=== PATIENT | male | born 1965 | race Caucasian/White ===

== ENCOUNTER 2016-09-22 14:12 | Inpatient (IN) | payer OTHER ==
[2016-09-22 15:09] VITALS: BMI 29.2
[2016-09-22] MEDS ORDERED: LOPERAMIDE HCL 2 MG CAPSULE PO PRN (17:06)
[2016-09-22] MEDS ORDERED: ACETAMINOPHEN 325 MG TABLET (FP) PO PRN (17:06)
[2016-09-22] MEDS ORDERED: guaiFENesin/D-METHORPHAN HB 10 ML UNIT-DOSE CUPS PO PRN (17:06)
[2016-09-22] MEDS ORDERED: IBUPROFEN 400 MG TABLET (FP) PO PRN (17:06)
[2016-09-22] MEDS ORDERED: MAGNESIUM CITRATE 300 ML BOTTLE PO PRN (17:06)
[2016-09-22] MEDS ORDERED: MAG HYDROX/AL HYDROX/SIMETH 30 ML UNIT-DOSE CUP PO PRN (17:06)
[2016-09-22] MEDS ORDERED: NICOTINE POLACRILEX 2 MG GUM BC PRN (17:06)
[2016-09-22] MEDS ORDERED: MAGNESIUM HYDROX 2400MG/30ML ORAL SUSPENSION 30 ML CUP PO PRN (17:06)
[2016-09-22] MEDS ORDERED: MENTHOL/PHENOL 1 EACH UD MM PRN (17:06)
[2016-09-22] MEDS ORDERED: P-EPHED 60MG/TRIPROLIDI 2.5MG TABLET PO PRN (17:06)
[2016-09-22] MEDS ORDERED: chlordiazePOXIDE HCL 25 MG CAPSULE PO PRN (17:06)
--- NOTE | 2016-09-22 17:19 | HP ---
CIWA Score - CIWA Score Nausea/Vomitin Muscle Tremors: 4-Moderate,w/Arms Extend Anxiety: 4-Mod. Anxious/Guarded Agitation: 4-Moderately Restless Paroxysmal Sweats: 3 Orientation: 0-Oriented Tacttile Disturbances: 1-Very Mild Itch/Numbness Auditory Disturbances: 0-None Visual Disturbances: 0-None Headache: 0-None Present CIWA-Ar Total Score: 19 Admission ROS BHS - HPI Chief Complaint: Withdrawal sx. Allergies/Adverse Reactions: Allergies Allergy/AdvReac Type Severity Reaction Status Date / Time No Known Allergies Allergy Verified 09/22/16 16:21 History of Present Illness: 50 y/o man with a long hx. of alcoholism is admitted for detox. Pt. has been in previous detox,reports one yr. sobriety. Exam Limitations: No Limitations - Ebola screening Have you traveled outside of the country in the last 21 days: No Have you had contact with anyone from an Ebola affected area: No Have you been sick,other than usual withdrawal symptoms: No Do you have a fever: No - Review of Systems Constitutional: Diaphoresis EENT: reports: No Symptoms Reported Respiratory: reports: No Symptoms reported Cardiac: reports: No Symptoms Reported GI: reports: Nausea, Abdominal cramping : reports: No Symptoms Reported Musculoskeletal: reports: No Symptoms Reported Integumentary: reports: Sweating Neuro: reports: Tingling, Tremors Endocrine: reports: No Symptoms Reported Hematology: reports: No Symptoms Reported Psychiatric: reports: No Sypmtoms Reported Other Systems: Reviewed and Negative Patient History - Patient Medical History Hx Anemia: No Hx Asthma: No Hx Chronic Obstructive Pulmonary Disease (COPD): No Hx Cancer: No Hx Cardiac Disorders: No Hx Congestive Heart Failure: No Hx Hypertension: No Hx Hypercholesterolemia: No Hx Pacemaker: No HX Cerebrovascular Accident: No Hx Seizures: No Hx Dementia: No Hx Diabetes: No Hx Gastrointestinal Disorders: No Hx Liver Disease: No Hx Genitourinary Disorders: No Hx Sexually Transmitted Disorders: No Hx Renal Disease (ESRD): No Hx Thyroid Disease: No Hx Hepatitis C: No Hx Depression: Yes (10 yrs. ago) Hx Suicide Attempt: No Hx Bipolar Disorder: No Hx Schizophrenia: No - Patient Surgical History Past Surgical History: Yes Hx Neurologic Surgery: Yes (L carpal tunnel sx) Hx Appendectomy: Yes (1989) Hx Orthopedic Surgery: No Other Surgical History: Tonsillectomy - PPD History Previous Implant?: Yes Documented Results: Negative w/proof Implanted On Prior [facility] Admission?: Yes Date: 04/02/16 Results: 0 mm PPD to be Administered?: No - Smoking Cessation Smoking history: Current every day smoker Have you smoked in the past 12 months: Yes Aproximately how many cigarettes per day: 7 Cigars Per Day: 0 Hx Chewing Tobacco Use: No Initiated information on smoking cessation: Yes 'Breaking Loose' booklet given: 09/22/16 - Substance & Tx. History Hx Alcohol Use: Yes Hx Substance Use: Yes Substance Use Type: Alcohol, Cocaine, Marijuana Hx Substance Use Treatment: Yes (detox & rehab) - Substances Abused Alcohol Route: Oral Frequency: Daily Amount used: Rum 1 1/2 PINT/ Beer 2(6 PK) Age of first use: 13 Date of Last Use: 09/22/16 Crack Route: Smoking Frequency: Daily Amount used: $200 Age of first use: 16 Date of Last Use: 09/22/16 Marijuana/Hashish Route: Smoking Frequency: Daily Amount used: $20 Age of first use: 13 Date of Last Use: 09/22/16 Family Disease History - Family Disease History Family Disease History: Other: Father (Alcoholic) Admission Physical Exam BHS - Vital Signs Vital Signs: Vital Signs - 24 hr 09/22/16 15:06 Temperature 98 F Pulse Rate 71 Respiratory 20 Rate Blood Pressure 128/78 - Physical General Appearance: Yes: Tremorous, Irritable, Sweating, Anxious HEENTM: Yes: Within Normal Limits Respiratory: Yes: Chest Non-Tender, Lungs Clear, Normal Breath Sounds Neck: Yes: Supple Breast: Yes: Breast Exam Deferred Cardiology: Yes: Regular Rhythm, Regular Rate, S1, S2 Abdominal: Yes: Normal Bowel Sounds, Non Tender, Soft Genitourinary: Yes: Within Normal Limits Back: Yes: Within Normal Limits Musculoskeletal: Yes: Within Normal Limits Extremities: Yes: Tremors Neurological: Yes: Fully Oriented, Alert Integumentary: Yes: Diaphoresis Lymphatic: Yes: Within Normal Limits - Diagnostic (1) Alcohol dependence with uncomplicated withdrawal Current Visit: Yes Status: Chronic (2) Nicotine dependence Current Visit: Yes Status: Chronic Qualifiers: Nicotine product type: cigarettes Substance use status: uncomplicated Qualified Code(s): F17.210 - Nicotine dependence, cigarettes, uncomplicated (3) Cocaine dependence, uncomplicated Current Visit: Yes Status: Acute (4) Cannabis dependence, uncomplicated Current Visit: Yes Status: Acute Cleared for Admission [facility] - Detox or Rehab [facility] Level of Care: Medically Managed Detox Regimen/Protocol: Librium [facility] Breath Alcohol Content Breath Alcohol Content: 0 Urine Drug Screen - Results Drug Screen Negative: No Urine Drug Screen Results: THC-Marijuana, GERMAN-Cocaine, BZO-Benzodiazepines
[2016-09-22] MEDS ORDERED: chlordiazePOXIDE HCL 25 MG CAPSULE PO ONE (18:15)
[2016-09-22] MEDS: NICOTINE 14 MG/24 HOURS TOPICAL PATCH TD SCH (18:30)
[2016-09-22] MEDS: chlordiazePOXIDE HCL 25 MG CAPSULE PO SCH (22:28)
[2016-09-22] MEDS: diphenhydrAMINE HCL 50 MG CAPSULE PO PRN (22:28)
[2016-09-22] MEDS: THIAMINE HCL 100 MG TABLET (FP) PO SCH (22:28)
[2016-09-22 23:58] LABS: URINE APPEARANCE CLEAR; URINE BILIRUBIN NEGATIVE (NEGATIVE); URINE BLOOD NEGATIVE (NEGATIVE); URINE COLOR YELLOW; URINE GLUCOSE (UA) NEGATIVE (NEGATIVE); URINE KETONE NEGATIVE (NEGATIVE); URINE LEUK ESTERASE NEGATIVE (NEGATIVE); URINE NITRITE NEGATIVE (NEGATIVE); URINE PROTEIN NEGATIVE (NEGATIVE); URINE UROBILINOGEN NEGATIVE E.U./dl (0.2-1.0)
[2016-09-23] MEDS: hydrOXYzine PAMOATE 50 MG CAPSULE (FP) PO PRN (03:16)
[2016-09-23] MEDS: chlordiazePOXIDE HCL 25 MG CAPSULE PO SCH ×4 (05:46→22:33)
--- NOTE | 2016-09-23 10:16 | CONSULT ---
[facility] Psychiatric Consult - Data Date of interview: 09/23/16 Admission source: [facility] Identifying data: This is 50 years old male with no psychiatric hospitalization historty intoxicatyed with: Cannabis, Cocaine, Alcohol and Nicotine Substance Abuse History: - Smoking Cessation. Smoking history: Current every day smoker. Have you smoked in the past 12 months: Yes. Aproximately how many cigarettes per day: 7. Cigars Per Day: 0. Hx Chewing Tobacco Use: No. Initiated information on smoking cessation: Yes. 'Breaking Loose' booklet given : 09/22/16. - Substance & Tx. History. Hx Alcohol Use: Yes. Hx Substance Use : Yes. Substance Use Type: Alcohol, Cocaine, Marijuana. Hx Substance Use Treatment: Yes (detox & rehab). - Substances Abused. Alcohol. Route: Oral. Frequency: Daily. Amount used: Rum 1 1/2 PINT/ Beer 2(6 PK). Age of first use: 13. Date of Last Use: 09/22/16. Crack. Route: Smoking. Frequency: Daily. Amount used: $200. Age of first use: 16. Date of Last Use: 09/22/16. Marijuana/Hashish. Route: Smoking. Frequency: Daily. Amount used: $20. Age of first use: 13. Date of Last Use: 09/22/16 Medical History: Denies Psychiatric History: Patient reports history of depression, nop medications taking at this time Physical/Sexual Abuse/Trauma History: Denies Additional Comment: Observation. Detox Unit Care Protocol Mental Status Exam - Mental Status Exam Alert and Oriented to: Person Cognitive Function: Fair Patient Appearance: Unkempt Mood: Sad Affect: Flat Patient Behavior: Sedated Speech Pattern: Delayed Voice Loudness: Mildly Soft/Quiet Thought Process: Circumstantial Thought Disorder: Being Controlled Hallucinations: Denies Suicidal Ideation: Denies Homicidal Ideation: Denies Insight/Judgement: Fair Sleep: Difficulty falling asleep Appetite: Fair Muscle strength/Tone: Mild Hypotonicity Gait/Station: Shuffling Additional Comments: Observation. Detox Unit Care Protocol Psychiatric Findings - Problem List ([place] 1, 2,3) (1) Cannabis dependence, uncomplicated Current Visit: Yes Status: Acute (2) Cocaine dependence, uncomplicated Current Visit: Yes Status: Acute (3) Alcohol dependence with uncomplicated withdrawal Current Visit: Yes Status: Chronic (4) Nicotine dependence Current Visit: Yes Status: Chronic Qualifiers: Nicotine product type: cigarettes Substance use status: uncomplicated Qualified Code(s): F17.210 - Nicotine dependence, cigarettes, uncomplicated (5) Alcohol induced sleep disorders Current Visit: No Status: Acute (6) Cannabis use disorder, mild, abuse Current Visit: No Status: Acute (7) Crack cocaine use Current Visit: No Status: Chronic (8) Drug-induced mood disorder Current Visit: Yes Status: Suspected - Initial Treatment Plan Initial Treatment Plan: Observation. Detox Unit Care Protocol
[2016-09-23 10:17] LABS: MCH 30.9 pg (25.7-33.7); MCHC 34.1 g/dl (32.0-35.9); MEAN CELL VOLUME 90.7 fl (80-96); MEAN PLT VOLUME 8.2 fl (7.5-11.1); PLATELET COUNT 222 K/MM3 (134-434); RDW 14.2 % (11.9-15.9); WHITE BLOOD COUNT 6.7 K/mm3 (4.0-10.0)
[2016-09-23 10:41] LABS: ALBUMIN 3.4 g/dl (3.4-5.0); ALK PHOS 92 U/L (45-117); ANION GAP 8 (8-16); BILIRUBIN,TOTAL 0.5 mg/dL (0.2-1.0); CO2 26 mmol/L (21-32); COCKROFT - GAULT 122.47; GLUCOSE,RANDOM 92 mg/dL (74-106); SGOT/AST 19 U/L (15-37); SGPT/ALT 27 U/L (12-78); TOT PROT 6.2 g/dl (6.4-8.2)
[2016-09-23] MEDS: NICOTINE 14 MG/24 HOURS TOPICAL PATCH TD SCH (10:44)
[2016-09-23] MEDS: PRENATAL VITAMINS W/ FOLIC ACID TABLET (FP) PO SCH (10:44)
--- NOTE | 2016-09-23 11:08 | PN ---
[facility] CIWA - CIWA Score Nausea/Vomitin-No Nausea/No Vomiting Muscle Tremors: 4-Moderate,w/Arms Extend Anxiety: 4-Mod. Anxious/Guarded Agitation: 4-Moderately Restless Paroxysmal Sweats: 1-Minimal Palms Moist Orientation: 0-Oriented Tacttile Disturbances: 3-Moderate Itch/Numb/Burn Auditory Disturbances: 0-None Visual Disturbances: 0-None Headache: 0-None Present CIWA-Ar Total Score: 16 BHS Progress Note (SOAP) Subjective: ANXIETY,TREMORS,INTERMITTENT SLEEP. Objective: 09/23/16 11:07 Vital Signs Temperature 96.7 F L 09/23/16 09:34 Pulse Rate 62 09/23/16 09:34 Respiratory Rate 18 09/23/16 09:34 Blood Pressure 112/76 09/23/16 09:34 O2 Sat by Pulse Oximetry (%) Laboratory Last Values WBC 6.7 K/mm3 (4.0-10.0) 09/23/16 07:00 RBC 4.92 M/mm3 (4.00-5.60) 09/23/16 07:00 Hgb 15.2 GM/dL (11.7-16.9) 09/23/16 07:00 Hct 44.6 % (35.4-49) 09/23/16 07:00 MCV 90.7 fl (80-96) 09/23/16 07:00 MCHC 34.1 g/dl (32.0-35.9) 09/23/16 07:00 RDW 14.2 % (11.9-15.9) 09/23/16 07:00 Plt Count 222 K/MM3 (134-434) 09/23/16 07:00 MPV 8.2 fl (7.5-11.1) 09/23/16 07:00 Sodium 140 mmol/L (136-145) 09/23/16 07:00 Potassium 4.2 mmol/L (3.5-5.1) 09/23/16 07:00 Chloride 106 mmol/L (98-107) 09/23/16 07:00 Carbon Dioxide 26 mmol/L (21-32) 09/23/16 07:00 Anion Gap 8 (8-16) 09/23/16 07:00 BUN 21 mg/dL (7-18) H D 09/23/16 07:00 Creatinine 1.0 mg/dL (0.7-1.3) 09/23/16 07:00 Creat Clearance w eGFR > 60 (>60) 09/23/16 07:00 Random Glucose 92 mg/dL (74-106) 09/23/16 07:00 Calcium 9.0 mg/dL (8.5-10.1) 09/23/16 07:00 Total Bilirubin 0.5 mg/dL (0.2-1.0) D 09/23/16 07:00 AST 19 U/L (15-37) D 09/23/16 07:00 ALT 27 U/L (12-78) D 09/23/16 07:00 Alkaline Phosphatase 92 U/L (45-117) 09/23/16 07:00 Total Protein 6.2 g/dl (6.4-8.2) L 09/23/16 07:00 Albumin 3.4 g/dl (3.4-5.0) D 09/23/16 07:00 Urine Color Yellow 09/22/16 23:40 Urine Appearance Clear 09/22/16 23:40 Urine pH 7.0 (5.0-8.0) 09/22/16 23:40 Urine Protein Negative (NEGATIVE) 09/22/16 23:40 Urine Glucose (UA) Negative (NEGATIVE) 09/22/16 23:40 Urine Ketones Negative (NEGATIVE) 09/22/16 23:40 Urine Blood Negative (NEGATIVE) 09/22/16 23:40 Urine Nitrite Negative (NEGATIVE) 09/22/16 23:40 Urine Bilirubin Negative (NEGATIVE) 09/22/16 23:40 Urine Urobilinogen Negative E.U./dl (0.2-1.0) 09/22/16 23:40 Ur Leukocyte Esterase Negative (NEGATIVE) 09/22/16 23:40 Assessment: 09/23/16 11:07 WITHDRAWAL SX Plan: CONTINUE DETOX
--- NOTE | 2016-09-23 17:36 | EKG ---
Test Reason : Blood Pressure : / mmHG Vent. Rate : 062 BPM Atrial Rate : 062 BPM P-R Int : 148 ms QRS Dur : 096 ms QT Int : 446 ms P-R-T Axes : -22 027 033 degrees QTc Int : 452 ms NORMAL SINUS RHYTHM NONSPECIFIC T WAVE ABNORMALITY ABNORMAL ECG NO PREVIOUS ECGS AVAILABLE Confirmed by HONORIO VASQUEZ, JEANINE ([id number]) on 09/23/2016 5:36:24 PM Referred By: Confirmed By:JEANINE OLMEDO MD
[2016-09-23] MEDS: THIAMINE HCL 100 MG TABLET (FP) PO SCH (22:33)
[2016-09-23] MEDS: diphenhydrAMINE HCL 50 MG CAPSULE PO PRN (22:34)
[2016-09-24] MEDS: chlordiazePOXIDE HCL 25 MG CAPSULE PO SCH ×3 (05:36→17:23)
[2016-09-24] MEDS: PRENATAL VITAMINS W/ FOLIC ACID TABLET (FP) PO SCH (10:26)
[2016-09-24] MEDS: NICOTINE 14 MG/24 HOURS TOPICAL PATCH TD SCH (10:27)
--- NOTE | 2016-09-24 13:44 | PN ---
S CIWA - CIWA Score Nausea/Vomitin-No Nausea/No Vomiting Muscle Tremors: 3 Anxiety: 4-Mod. Anxious/Guarded Agitation: 4-Moderately Restless Paroxysmal Sweats: 3 Orientation: 0-Oriented Tacttile Disturbances: 0-None Auditory Disturbances: 0-None Visual Disturbances: 0-None Headache: 0-None Present CIWA-Ar Total Score: 14 BHS Progress Note (SOAP) Subjective: Anxiety,tremors,sweating,interrupted sleep,restless Objective: 09/24/16 13:44 Vital Signs - 8 hr 09/24/16 09/24/16 06:40 10:42 Temperature 95.6 F L 96.0 F L Pulse Rate 57 L 62 Respiratory 18 18 Rate Blood Pressure 107/65 91/51 Laboratory Tests 09/22/16 09/23/16 09/23/16 23:40 07:00 07:00 WBC 6.7 RBC 4.92 Hgb 15.2 Hct 44.6 MCV 90.7 MCHC 34.1 RDW 14.2 Plt Count 222 MPV 8.2 Sodium 140 Potassium 4.2 Chloride 106 Carbon Dioxide 26 Anion Gap 8 BUN 21 H D Creatinine 1.0 Creat Clearance w eGFR > 60 Random Glucose 92 Calcium 9.0 Total Bilirubin 0.5 D AST 19 D ALT 27 D Alkaline Phosphatase 92 Total Protein 6.2 L Albumin 3.4 D Urine Color Yellow Urine Appearance Clear Urine pH 7.0 Ur Specific [place] 1.015 Urine Protein Negative Urine Glucose (UA) Negative Urine Ketones Negative Urine Blood Negative Urine Nitrite Negative Urine Bilirubin Negative Urine Urobilinogen Negative Ur Leukocyte Esterase Negative RPR Titer 09/23/16 07:00 WBC RBC Hgb Hct MCV MCHC RDW Plt Count MPV Sodium Potassium Chloride Carbon Dioxide Anion Gap BUN Creatinine Creat Clearance w eGFR Random Glucose Calcium Total Bilirubin AST ALT Alkaline Phosphatase Total Protein Albumin Urine Color Urine Appearance Urine pH Ur Specific [place] Urine Protein Urine Glucose (UA) Urine Ketones Urine Blood Urine Nitrite Urine Bilirubin Urine Urobilinogen Ur Leukocyte Esterase RPR Titer Nonreactive labs noted Assessment: 09/24/16 13:44 Withdrawal sx. Plan: Continue detox
[2016-09-24] MEDS: THIAMINE HCL 100 MG TABLET (FP) PO SCH (22:24)
[2016-09-24] MEDS: chlordiazePOXIDE 5 MG CAPSULE PO SCH (22:24)
[2016-09-24] MEDS: hydrOXYzine PAMOATE 50 MG CAPSULE (FP) PO PRN (22:25)
[2016-09-25] MEDS: chlordiazePOXIDE 5 MG CAPSULE PO SCH ×3 (05:37→17:11)
[2016-09-25] MEDS: NICOTINE 14 MG/24 HOURS TOPICAL PATCH TD SCH (10:20)
[2016-09-25] MEDS: PRENATAL VITAMINS W/ FOLIC ACID TABLET (FP) PO SCH (10:20)
--- NOTE | 2016-09-25 17:40 | PN ---
S Progress Note (SOAP) Subjective: Interrupted sleep, Tremors. Objective: PT. A & O X 3. 09/25/16 17:39 Vital Signs Temperature 96.8 F L 09/25/16 15:34 Pulse Rate 93 H 09/25/16 15:34 Respiratory Rate 18 09/25/16 15:34 Blood Pressure 102/71 09/25/16 15:34 O2 Sat by Pulse Oximetry (%) Laboratory Last Values WBC 6.7 K/mm3 (4.0-10.0) 09/23/16 07:00 RBC 4.92 M/mm3 (4.00-5.60) 09/23/16 07:00 Hgb 15.2 GM/dL (11.7-16.9) 09/23/16 07:00 Hct 44.6 % (35.4-49) 09/23/16 07:00 MCV 90.7 fl (80-96) 09/23/16 07:00 MCHC 34.1 g/dl (32.0-35.9) 09/23/16 07:00 RDW 14.2 % (11.9-15.9) 09/23/16 07:00 Plt Count 222 K/MM3 (134-434) 09/23/16 07:00 MPV 8.2 fl (7.5-11.1) 09/23/16 07:00 Sodium 140 mmol/L (136-145) 09/23/16 07:00 Potassium 4.2 mmol/L (3.5-5.1) 09/23/16 07:00 Chloride 106 mmol/L (98-107) 09/23/16 07:00 Carbon Dioxide 26 mmol/L (21-32) 09/23/16 07:00 Anion Gap 8 (8-16) 09/23/16 07:00 BUN 21 mg/dL (7-18) H D 09/23/16 07:00 Creatinine 1.0 mg/dL (0.7-1.3) 09/23/16 07:00 Creat Clearance w eGFR > 60 (>60) 09/23/16 07:00 Random Glucose 92 mg/dL (74-106) 09/23/16 07:00 Calcium 9.0 mg/dL (8.5-10.1) 09/23/16 07:00 Total Bilirubin 0.5 mg/dL (0.2-1.0) D 09/23/16 07:00 AST 19 U/L (15-37) D 09/23/16 07:00 ALT 27 U/L (12-78) D 09/23/16 07:00 Alkaline Phosphatase 92 U/L (45-117) 09/23/16 07:00 Total Protein 6.2 g/dl (6.4-8.2) L 09/23/16 07:00 Albumin 3.4 g/dl (3.4-5.0) D 09/23/16 07:00 Urine Color Yellow 09/22/16 23:40 Urine Appearance Clear 09/22/16 23:40 Urine pH 7.0 (5.0-8.0) 09/22/16 23:40 Ur Specific [place] 1.015 (1.005-1.025) 09/22/16 23:40 Urine Protein Negative (NEGATIVE) 09/22/16 23:40 Urine Glucose (UA) Negative (NEGATIVE) 09/22/16 23:40 Urine Ketones Negative (NEGATIVE) 09/22/16 23:40 Urine Blood Negative (NEGATIVE) 09/22/16 23:40 Urine Nitrite Negative (NEGATIVE) 09/22/16 23:40 Urine Bilirubin Negative (NEGATIVE) 09/22/16 23:40 Urine Urobilinogen Negative E.U./dl (0.2-1.0) 09/22/16 23:40 Ur Leukocyte Esterase Negative (NEGATIVE) 09/22/16 23:40 RPR Titer Nonreactive (NONREACTIVE) 09/23/16 07:00 LABS NOTED. Assessment: 09/25/16 17:40 WITHDRAWAL SYMPTOMS. Plan: CONTINUE DETOX. INCREASE PO FLUIDS. ADVISED PATIENT TO FOLLOW-UP WITH LABEL FUSER TENDER / REHAB MEDICAL PROVIDER AFTER DISCHARGE FROM DETOX FOR GENERAL MEDICAL ASSESSMENT AND FOR ABNORMAL ADMISSION LAB VALUES.
[2016-09-25] MEDS: chlordiazePOXIDE HCL 10 MG CAPSULE PO SCH (22:33)
[2016-09-25] MEDS: THIAMINE HCL 100 MG TABLET (FP) PO SCH (22:33)
[2016-09-25] MEDS: hydrOXYzine PAMOATE 50 MG CAPSULE (FP) PO PRN (22:34)
[2016-09-26] MEDS: chlordiazePOXIDE HCL 10 MG CAPSULE PO SCH ×2 (05:53→10:13)
[2016-09-26 09:39] VITALS: BP 107/73; PULSE 68; TEMP 98.6
[2016-09-26] MEDS: PRENATAL VITAMINS W/ FOLIC ACID TABLET (FP) PO SCH (10:13)
[2016-09-26] MEDS: NICOTINE 14 MG/24 HOURS TOPICAL PATCH TD SCH (10:13)
--- NOTE | 2016-09-26 11:50 | DS ---
[facility] Detox Discharge Summary Admission Date: 09/22/16 Discharge Date: 09/26/16 - History Present History: Alcohol Dependence, Cannabis Dependence, Cocaine Dependence Pertinent Past History: Denies - Physical Exam Results Vital Signs: Vital Signs Temperature 98.6 F 09/26/16 09:37 Pulse Rate 68 09/26/16 09:37 Respiratory Rate 18 09/26/16 09:37 Blood Pressure 107/73 09/26/16 09:37 O2 Sat by Pulse Oximetry (%) Pertinent Admission Physical Exam Findings: Withdrawal symptoms Laboratory Tests 09/22/16 09/23/16 09/23/16 23:40 07:00 07:00 WBC 6.7 RBC 4.92 Hgb 15.2 Hct 44.6 MCV 90.7 MCHC 34.1 RDW 14.2 Plt Count 222 MPV 8.2 Sodium 140 Potassium 4.2 Chloride 106 Carbon Dioxide 26 Anion Gap 8 BUN 21 H D Creatinine 1.0 Creat Clearance w eGFR > 60 Random Glucose 92 Calcium 9.0 Total Bilirubin 0.5 D AST 19 D ALT 27 D Alkaline Phosphatase 92 Total Protein 6.2 L Albumin 3.4 D Urine Color Yellow Urine Appearance Clear Urine pH 7.0 Ur Specific [place] 1.015 Urine Protein Negative Urine Glucose (UA) Negative Urine Ketones Negative Urine Blood Negative Urine Nitrite Negative Urine Bilirubin Negative Urine Urobilinogen Negative Ur Leukocyte Esterase Negative RPR Titer 09/23/16 07:00 WBC RBC Hgb Hct MCV MCHC RDW Plt Count MPV Sodium Potassium Chloride Carbon Dioxide Anion Gap BUN Creatinine Creat Clearance w eGFR Random Glucose Calcium Total Bilirubin AST ALT Alkaline Phosphatase Total Protein Albumin Urine Color Urine Appearance Urine pH Ur Specific [place] Urine Protein Urine Glucose (UA) Urine Ketones Urine Blood Urine Nitrite Urine Bilirubin Urine Urobilinogen Ur Leukocyte Esterase RPR Titer Nonreactive Labs note - Treatment Hospital Course: Detox Protocol Followed, Detoxed Safely, Responded well, Discharged Condition Good, Rehab Referral Accepted - Medication Discharge Medications: Ambulatory Orders NK [No Known Home Medication] 09/22/16 - Diagnosis (1) Cannabis dependence, uncomplicated Current Visit: Yes Status: Chronic (2) Cocaine dependence, uncomplicated Current Visit: Yes Status: Chronic (3) Alcohol dependence with uncomplicated withdrawal Current Visit: Yes Status: Acute (4) Nicotine dependence Current Visit: Yes Status: Chronic Qualifiers: Nicotine product type: cigarettes Substance use status: uncomplicated Qualified Code(s): F17.210 - Nicotine dependence, cigarettes, uncomplicated (5) Depression Current Visit: Yes Status: Chronic - AMA Did Patient Leave Against Medical Advice: No (admitted to [facility] inpatient rehab post discharge)
== END 2016-09-26 12:29 | disposition other institution (70) | DRG 774 ==
LOC: YASAS 14:12 → Y3N 17:52
PROVIDERS: ADMIT Internal Medicine; ATTEND Internal Medicine
PROC: HZ2ZZZZ Detoxification Services for Substance Abuse Treatment (ICD-10-PCS; principal; 2016-09-22)
DX: F10.230 Alcohol dependence with withdrawal, uncomplicated (principal); F10.282 Alcohol dependence with alcohol-induced sleep disorder; F14.20 Cocaine dependence, uncomplicated; F12.20 Cannabis dependence, uncomplicated; F17.210 Nicotine dependence, cigarettes, uncomplicated; F19.24 Other psychoactive substance dependence with psychoactive substance-induced mood disorder; F32.9 Major depressive disorder, single episode, unspecified
CPT/HCPCS: 36415; 80053; 81003; 85027; 86593; 93005; 93010

== ENCOUNTER 2016-09-26 12:37 | Inpatient (IN) | payer OTHER ==
[2016-09-26] MEDS ORDERED: ACETAMINOPHEN 325 MG TABLET (FP) PO PRN (14:04)
[2016-09-26] MEDS ORDERED: IBUPROFEN 400 MG TABLET (FP) PO PRN (14:04)
[2016-09-26] MEDS ORDERED: MAGNESIUM HYDROX 2400MG/30ML ORAL SUSPENSION 30 ML CUP PO PRN (14:04)
[2016-09-26] MEDS ORDERED: MENTHOL/PHENOL 1 EACH UD MM PRN (14:04)
[2016-09-26] MEDS ORDERED: MAG HYDROX/AL HYDROX/SIMETH 30 ML UNIT-DOSE CUP PO PRN (14:04)
[2016-09-26] MEDS ORDERED: guaiFENesin/D-METHORPHAN HB 10 ML UNIT-DOSE CUPS PO PRN (14:04)
[2016-09-26] MEDS ORDERED: NICOTINE POLACRILEX 2 MG GUM BUC PRN (14:04)
[2016-09-26] MEDS ORDERED: MAGNESIUM CITRATE 300 ML BOTTLE PO PRN (14:04)
[2016-09-26] MEDS ORDERED: LOPERAMIDE HCL 2 MG CAPSULE PO PRN (14:04)
[2016-09-26] MEDS ORDERED: P-EPHED 60MG/TRIPROLIDI 2.5MG TABLET PO PRN (14:04)
--- NOTE | 2016-09-26 14:06 | HP ---
KENNEY VASQUEZ Rehab Assess/Revision - Admission History Admitted to Rehab from: [facility] Date of Admission to Rehab: 09/26/16 - Vital signs Vital Signs: Vital Signs Period Temp Pulse Resp BP Sys/Busch Pulse Ox Last 24 Hr 97.5 F 72 18 121/71 - Findings Detox History & Physical reviewed: Yes Concur with findings: Yes
[2016-09-26] MEDS: THIAMINE HCL 100 MG TABLET (FP) PO SCH (21:15)
[2016-09-26] MEDS: diphenhydrAMINE HCL 50 MG CAPSULE PO PRN (21:15)
[2016-09-27] MEDS: PRENATAL VITAMINS W/ FOLIC ACID TABLET (FP) PO SCH (10:09)
[2016-09-27] MEDS: NICOTINE 21 MG/24 HOURS TOPICAL PATCH TD SCH (10:10)
--- NOTE | 2016-09-27 14:26 | HP ---
Psychiatrist Admission - Data Date of interview: 09/27/16 Admission source: [facility]N Identifying data: This is the second inpatient rehabilitation admssion for this 50 year old male father of 3 , he is currently homeless and unemployed. Medical History: History of appendectomy in 1989 and Carpal Tunnel surgery in 2012, smokes 7 cigarettes a day. Psychiatric History: Patient reports no history of psychiatric treatment, but states saw the psychiatrist while in rehabilitation program to address insomnia , treated with Trazodone, stopped due to the side -effects such a headaches, still having trouble sleeping at night, on previos treatment at in 2016 was on Vistaril, he recalls was effective Physical/Sexual Abuse/Trauma History: Denies history of sexual, physical and verbal abuse. Vital Signs: Vital Signs - 24 hr 09/27/16 09/27/16 09/27/16 00:30 03:30 06:29 Temperature 97.2 F L Pulse Rate 65 Respiratory 18 18 17 Rate Blood Pressure 107/73 Allergies/Adverse Reactions: Allergies Allergy/AdvReac Type Severity Reaction Status Date / Time No Known Allergies Allergy Verified 09/26/16 12:58 Date of last physical exam: 09/22/16 Concur with the findings of this exam: Yes - Substance Abuse/Tx History Hx Alcohol Use: Yes (1.5 pints of rum, beer2(6pks) daily ) Hx Substance Use: Yes Substance Use Type: Cocaine ($200 daily ), Marijuana (daily $20) Hx Substance Use Treatment: Yes (several detox and rehab. treatmentts) - Admission Criteria Previous failed treatment: Yes Poor recovery environment: Yes Comorbidities: Yes Lacks judgement: Yes Mental Status Exam - Mental Status Exam Alert and Oriented to: Time, Place, Person Cognitive Function: Fair Patient Appearance: Well Groomed Mood: Hopeful Affect: Appropriate, Mood Congruent Patient Behavior: Appropriate, Cooperative Speech Pattern: Clear, Appropriate Voice Loudness: Normal Thought Process: Intact, Goal Oriented Thought Disorder: Not Present Hallucinations: Denies Suicidal Ideation: Denies Homicidal Ideation: Denies Insight/Judgement: Fair Sleep: Poorly, Difficulty falling asleep Appetite: Fair Muscle strength/Tone: Normal Psychiatric Findings - Problem List ([place] 1, 2,3) (1) Alcohol induced sleep disorders Current Visit: No Status: Acute (2) Cannabis dependence, uncomplicated Current Visit: No Status: Chronic (3) Cocaine dependence, uncomplicated Current Visit: No Status: Chronic (4) Nicotine dependence Current Visit: No Status: Chronic Qualifiers: Nicotine product type: cigarettes Substance use status: uncomplicated Qualified Code(s): F17.210 - Nicotine dependence, cigarettes, uncomplicated (5) Alcohol dependence Current Visit: Yes Status: Acute - Initial Treatment Plan Initial Treatment Plan: add Vistaril 5 mg po hs, continue to monitor progress.
[2016-09-27] MEDS: THIAMINE HCL 100 MG TABLET (FP) PO SCH (21:18)
[2016-09-27] MEDS: hydrOXYzine PAMOATE 50 MG CAPSULE (FP) PO PRN (21:19)
[2016-09-28] MEDS: NICOTINE 21 MG/24 HOURS TOPICAL PATCH TD SCH (09:43)
[2016-09-28] MEDS: PRENATAL VITAMINS W/ FOLIC ACID TABLET (FP) PO SCH (09:43)
[2016-09-28 10:34] LABS: HIV 1 & 2 AB NEGATIVE; HIV 1 AGp24 NEGATIVE
[2016-09-28] MEDS: THIAMINE HCL 100 MG TABLET (FP) PO SCH (21:17)
[2016-09-28] MEDS: diphenhydrAMINE HCL 50 MG CAPSULE PO PRN (21:58)
[2016-09-29] MEDS: NICOTINE 21 MG/24 HOURS TOPICAL PATCH TD SCH (09:45)
[2016-09-29] MEDS: PRENATAL VITAMINS W/ FOLIC ACID TABLET (FP) PO SCH (09:45)
[2016-09-29] MEDS: THIAMINE HCL 100 MG TABLET (FP) PO SCH (21:12)
[2016-09-29] MEDS: hydrOXYzine PAMOATE 50 MG CAPSULE (FP) PO PRN (21:13)
[2016-09-30] MEDS: NICOTINE 21 MG/24 HOURS TOPICAL PATCH TD SCH (10:15)
[2016-09-30] MEDS: PRENATAL VITAMINS W/ FOLIC ACID TABLET (FP) PO SCH (10:15)
[2016-09-30] MEDS: COLLOIDAL OATMEAL 1 BAR EACH TP PRN (12:40)
--- NOTE | 2016-09-30 13:35 | PN ---
Psychiatric Progress Note Vital Signs: Vital Signs Period Temp Pulse Resp BP Sys/Busch Pulse Ox Last 24 Hr 97.8 F 64 18-18 129/78 Date of Session: 09/30/16 Chief Complaint:: insomnia HPI: patient is addressing alcohol, cocaine, cannabis dependence comorbid alcohol induced sleep disorder. ROS: wnl Current Medications: Active Medications Generic Name Dose Route Start Last Admin Trade Name Freq PRN Reason Stop Dose Admin Acetaminophen 650 mg 09/26/16 14:04 Tylenol - PO Q4H PRN FEVER OR PAIN Al Hydroxide/Mg Hydroxide 30 ml 09/26/16 14:04 Mylanta Oral Suspension - PO Q6H PRN DYSPEPSIA Colloidal Oatmeal 1 applic 09/30/16 11:45 09/30/16 12:40 Aveeno Soap - TP 1 applic DAILY PRN Administration HYGEINE Diphenhydramine HCl 50 mg 09/26/16 14:04 09/28/16 21:58 Benadryl - PO 50 mg HSMR1 PRN Administration FOR ITCHING Eucalyptus/Menthol/Phenol/Sorbitol 1 each 09/26/16 14:04 Cepastat Lozenge - MM Q4H PRN SORE THROAT Guaifenesin 10 ml 09/26/16 14:04 Robitussin Dm - PO Q6H PRN COUGH Hydroxyzine Pamoate 50 mg 09/27/16 14:10 09/29/16 21:13 Vistaril - PO 50 mg HS PRN Administration INSOMNIA Ibuprofen 400 mg 09/26/16 14:04 Motrin - PO Q6H PRN PAIN Loperamide HCl 4 mg 09/26/16 14:04 Imodium - PO Q6H PRN DIARRHEA Magnesium Hydroxide 30 ml 09/26/16 14:04 Milk Of Magnesia - PO DAILY PRN CONSTIPATION Nicotine 14 mg 09/27/16 10:00 09/30/16 10:15 Nicoderm Patch - TD Not Given DAILY WU Nicotine Polacrilex 2 mg 09/26/16 14:04 Nicorette Gum - BUC Q2H PRN NICOTINE REPLACEMENT RX Multivit/Folic Acid/Iron 1 tab 09/27/16 10:00 09/30/16 10:15 Vitamins (Sjr) - PO 1 tab DAILY WU Administration Pseudoephedrine/Triprolidine 1 combo 09/26/16 14:04 Actifed - PO TID PRN NASAL CONGESTION Thiamine HCl 100 mg 09/26/16 22:00 09/29/16 21:12 Vitamin B1 - PO 100 mg HS WU Administration Medication(s) Change(s): add remeron 15 mg po hs. Current Side Effect: No Lab tests ordered: No Lab tests reviewed: Yes Provider note:: patient was seen today, with complains of insomnia, vistaril not effective, discussed indications and properties of Remeron, patient agreed to start medications, will continue to monitor progress. Total face to face time:: 15 Mental Status Exam - Mental Status Exam Alert and Oriented to: Time, Place, Person Cognitive Function: Good Patient Appearance: Well Groomed Mood: Sad Affect: Appropriate, Mood Congruent Patient Behavior: Appropriate, Cooperative Speech Pattern: Clear, Appropriate Voice Loudness: Normal Thought Process: Goal Oriented Hallucinations: Denies Suicidal Ideation: Denies Homicidal Ideation: Denies Insight/Judgement: Fair Sleep: Difficulty falling asleep Appetite: Fair Muscle strength/Tone: Normal Gait/Station: Normal Psychiatric Treatment Plan - Problem List (1) Alcohol induced sleep disorders Current Visit: No (2) Cannabis dependence, uncomplicated Current Visit: No (3) Cocaine dependence, uncomplicated Current Visit: No (4) Nicotine dependence Current Visit: No Qualifiers: Nicotine product type: cigarettes Substance use status: uncomplicated Qualified Code(s): F17.210 - Nicotine dependence, cigarettes, uncomplicated (5) Alcohol dependence Current Visit: Yes
[2016-09-30] MEDS: THIAMINE HCL 100 MG TABLET (FP) PO SCH (21:18)
[2016-10-01] MEDS: PRENATAL VITAMINS W/ FOLIC ACID TABLET (FP) PO SCH (09:52)
[2016-10-01] MEDS: NICOTINE 21 MG/24 HOURS TOPICAL PATCH TD SCH (09:52)
[2016-10-01] MEDS: MIRTAZAPINE 15 MG TABLET (FP) PO SCH (21:14)
[2016-10-01] MEDS: THIAMINE HCL 100 MG TABLET (FP) PO SCH (21:14)
[2016-10-02] MEDS: NICOTINE 21 MG/24 HOURS TOPICAL PATCH TD SCH (09:56)
[2016-10-02] MEDS: PRENATAL VITAMINS W/ FOLIC ACID TABLET (FP) PO SCH (09:56)
[2016-10-02] MEDS: MIRTAZAPINE 15 MG TABLET (FP) PO SCH (21:15)
[2016-10-02] MEDS: THIAMINE HCL 100 MG TABLET (FP) PO SCH (21:15)
[2016-10-03] MEDS: PRENATAL VITAMINS W/ FOLIC ACID TABLET (FP) PO SCH (09:54)
[2016-10-03] MEDS: NICOTINE 21 MG/24 HOURS TOPICAL PATCH TD SCH (09:54)
[2016-10-03] MEDS: MIRTAZAPINE 15 MG TABLET (FP) PO SCH (22:02)
[2016-10-03] MEDS: THIAMINE HCL 100 MG TABLET (FP) PO SCH (22:02)
[2016-10-04] MEDS: NICOTINE 21 MG/24 HOURS TOPICAL PATCH TD SCH (10:19)
[2016-10-04] MEDS: PRENATAL VITAMINS W/ FOLIC ACID TABLET (FP) PO SCH (10:19)
[2016-10-04] MEDS: THIAMINE HCL 100 MG TABLET (FP) PO SCH (21:41)
[2016-10-04] MEDS: MIRTAZAPINE 15 MG TABLET (FP) PO SCH (21:41)
[2016-10-05] MEDS: PRENATAL VITAMINS W/ FOLIC ACID TABLET (FP) PO SCH (09:57)
[2016-10-05] MEDS: NICOTINE 21 MG/24 HOURS TOPICAL PATCH TD SCH (09:57)
[2016-10-05] MEDS: THIAMINE HCL 100 MG TABLET (FP) PO SCH (21:10)
[2016-10-05] MEDS: MIRTAZAPINE 15 MG TABLET (FP) PO SCH (21:10)
[2016-10-06] MEDS: PRENATAL VITAMINS W/ FOLIC ACID TABLET (FP) PO SCH (09:58)
[2016-10-06] MEDS: NICOTINE 21 MG/24 HOURS TOPICAL PATCH TD SCH (09:58)
[2016-10-06] MEDS: MIRTAZAPINE 15 MG TABLET (FP) PO SCH (21:29)
[2016-10-06] MEDS: THIAMINE HCL 100 MG TABLET (FP) PO SCH (21:29)
[2016-10-07] MEDS: NICOTINE 21 MG/24 HOURS TOPICAL PATCH TD SCH (10:10)
[2016-10-07] MEDS: PRENATAL VITAMINS W/ FOLIC ACID TABLET (FP) PO SCH (10:10)
[2016-10-07] MEDS: THIAMINE HCL 100 MG TABLET (FP) PO SCH (22:29)
[2016-10-07] MEDS: MIRTAZAPINE 15 MG TABLET (FP) PO SCH (22:29)
[2016-10-08] MEDS: COLLOIDAL OATMEAL 1 BAR EACH TP PRN (09:48)
[2016-10-08] MEDS: PRENATAL VITAMINS W/ FOLIC ACID TABLET (FP) PO SCH (09:48)
[2016-10-08] MEDS: NICOTINE 21 MG/24 HOURS TOPICAL PATCH TD SCH (09:49)
[2016-10-08] MEDS: THIAMINE HCL 100 MG TABLET (FP) PO SCH (22:03)
[2016-10-08] MEDS: MIRTAZAPINE 15 MG TABLET (FP) PO SCH (22:03)
[2016-10-09] MEDS: PRENATAL VITAMINS W/ FOLIC ACID TABLET (FP) PO SCH (09:50)
[2016-10-09] MEDS: NICOTINE 21 MG/24 HOURS TOPICAL PATCH TD SCH (09:50)
[2016-10-09] MEDS: MIRTAZAPINE 15 MG TABLET (FP) PO SCH (21:41)
[2016-10-09] MEDS: THIAMINE HCL 100 MG TABLET (FP) PO SCH (21:41)
[2016-10-10] MEDS: PRENATAL VITAMINS W/ FOLIC ACID TABLET (FP) PO SCH (09:59)
[2016-10-10] MEDS: NICOTINE 21 MG/24 HOURS TOPICAL PATCH TD SCH (09:59)
[2016-10-10] MEDS: THIAMINE HCL 100 MG TABLET (FP) PO SCH (21:29)
[2016-10-10] MEDS: MIRTAZAPINE 15 MG TABLET (FP) PO SCH (21:29)
[2016-10-11 06:50] VITALS: TEMP 97.5
[2016-10-11] MEDS: NICOTINE 21 MG/24 HOURS TOPICAL PATCH TD SCH (09:57)
[2016-10-11] MEDS: PRENATAL VITAMINS W/ FOLIC ACID TABLET (FP) PO SCH (09:58)
--- NOTE | 2016-10-11 17:19 | PN ---
Psychiatric Progress Note Vital Signs: Vital Signs Period Temp Pulse Resp BP Sys/Busch Pulse Ox Last 24 Hr 97.5 F 60 18-18 104/64 Date of Session: 10/11/16 Chief Complaint:: Discharge visit HPI: Patient addressed Alcohol,Cocaine and Cannabis dependence comorbid with Substance induced sleep disorder. ROS: unremarkable Current Medications: Active Medications Generic Name Dose Route Start Last Admin Trade Name Freq PRN Reason Stop Dose Admin Acetaminophen 650 mg 09/26/16 14:04 Tylenol - PO Q4H PRN FEVER OR PAIN Al Hydroxide/Mg Hydroxide 30 ml 09/26/16 14:04 Mylanta Oral Suspension - PO Q6H PRN DYSPEPSIA Colloidal Oatmeal 1 applic 09/30/16 11:45 10/08/16 09:48 Aveeno Soap - TP 1 applic DAILY PRN Administration HYGEINE Diphenhydramine HCl 50 mg 09/26/16 14:04 09/28/16 21:58 Benadryl - PO 50 mg HSMR1 PRN Administration FOR ITCHING Eucalyptus/Menthol/Phenol/Sorbitol 1 each 09/26/16 14:04 Cepastat Lozenge - MM Q4H PRN SORE THROAT Guaifenesin 10 ml 09/26/16 14:04 10/11/16 09:58 Robitussin Dm - PO 10 ml Q6H PRN Administration COUGH Hydroxyzine Pamoate 50 mg 09/27/16 14:10 09/29/16 21:13 Vistaril - PO 50 mg HS PRN Administration INSOMNIA Ibuprofen 400 mg 09/26/16 14:04 Motrin - PO Q6H PRN PAIN Loperamide HCl 4 mg 09/26/16 14:04 Imodium - PO Q6H PRN DIARRHEA Magnesium Hydroxide 30 ml 09/26/16 14:04 Milk Of Magnesia - PO DAILY PRN CONSTIPATION Mirtazapine 15 mg 10/01/16 22:00 10/10/16 21:29 Remeron - PO Not Given HS WU Nicotine 14 mg 09/27/16 10:00 10/11/16 09:57 Nicoderm Patch - TD Not Given DAILY WU Nicotine Polacrilex 2 mg 09/26/16 14:04 Nicorette Gum - BUC Q2H PRN NICOTINE REPLACEMENT RX Multivit/Folic Acid/Iron 1 tab 09/27/16 10:00 10/11/16 09:58 Vitamins (Sjr) - PO 1 tab DAILY WU Administration Pseudoephedrine/Triprolidine 1 combo 09/26/16 14:04 Actifed - PO TID PRN NASAL CONGESTION Thiamine HCl 100 mg 09/26/16 22:00 10/10/16 21:29 Vitamin B1 - PO Not Given HS WU Current Side Effect: No Lab tests ordered: No Lab tests reviewed: Yes Provider note:: patient will complete this program tomorrow .He has met his treatment goals and will continue to address his issues on outpatient basis at [facility].Patient continues to find that current management will help him to maintain recovery .supportive therapy provided focusing on relapse prevention including discussion of better utilization of his support system and coping skills. patient is stable for discharge tomorrow. Total face to face time:: 30 Mental Status Exam - Mental Status Exam Alert and Oriented to: Time, Place, Person Cognitive Function: Grossly Intact Patient Appearance: Well Groomed Mood: Euthymic Affect: Appropriate, Mood Congruent Patient Behavior: Cooperative Speech Pattern: Clear Voice Loudness: Normal Thought Process: Goal Oriented Thought Disorder: Not Present Hallucinations: Denies Suicidal Ideation: Denies Homicidal Ideation: Denies Insight/Judgement: Fair Sleep: Fair Appetite: Good Muscle strength/Tone: Normal Gait/Station: Normal Psychiatric Treatment Plan - Problem List (1) Alcohol dependence Current Visit: Yes (2) Alcohol induced sleep disorders Current Visit: No (3) Cannabis dependence, uncomplicated Current Visit: No (4) Cocaine dependence, uncomplicated Current Visit: No
[2016-10-11] MEDS: THIAMINE HCL 100 MG TABLET (FP) PO SCH (21:18)
[2016-10-11] MEDS: MIRTAZAPINE 15 MG TABLET (FP) PO SCH (21:18)
[2016-10-12 06:57] VITALS: BP 123/75; PULSE 62
[2016-10-12] MEDS: PRENATAL VITAMINS W/ FOLIC ACID TABLET (FP) PO SCH (09:59)
[2016-10-12] MEDS: NICOTINE 21 MG/24 HOURS TOPICAL PATCH TD SCH (09:59)
== END 2016-10-12 11:05 | disposition home or self-care (01) | DRG 772 ==
LOC: YASAS 12:37 → Y5N 12:39
PROVIDERS: ADMIT Psychiatry & Neurology Psychiatry; ATTEND Psychiatry & Neurology Psychiatry
PROC: HZ42ZZZ Group Counseling for Substance Abuse Treatment, Cognitive-Behavioral (ICD-10-PCS; principal; 2016-09-26)
DX: F10.20 Alcohol dependence, uncomplicated (principal); F10.282 Alcohol dependence with alcohol-induced sleep disorder; F14.20 Cocaine dependence, uncomplicated; F12.20 Cannabis dependence, uncomplicated; F17.210 Nicotine dependence, cigarettes, uncomplicated
CPT/HCPCS: 36415; 87389